=== PATIENT | female | born 1990 | race Two or more races ===

== ENCOUNTER 2022-06-18 09:05 | Outpatient (CLI) | payer OTHER | END 2022-06-18 09:10 | disposition home or self-care (01) | LOC: SONOGRAMA 09:05 | PROVIDERS: ATTEND Pathology Anatomic Pathology | DX: E04.2 Nontoxic multinodular goiter (principal) ==

== ENCOUNTER → 2022-07-04 | Outpatient (CLI) | payer OTHER | END | disposition home or self-care (01) | LOC: RAD 07:57 | DX: M25.571 Pain in right ankle and joints of right foot (principal); S93.401A Sprain of unspecified ligament of right ankle, initial encounter ==

== ENCOUNTER → 2022-07-05 | Outpatient (CLI) | payer OTHER | END | disposition home or self-care (01) | LOC: MRI 09:38 | DX: M84.471A Pathological fracture, right ankle, initial encounter for fracture (principal) | CPT/HCPCS: 73721 ==